=== PATIENT | female | born 1995 | race American Indian/Alaskan Native ===

== ENCOUNTER 2017-03-31 10:07 | Inpatient (IN) | payer MEDICAID ==
[2017-03-31 11:58] LABS: Hematocrit 32.2 % (30.3-42.9); Hemoglobin 10.1 gm/dl (10.1-14.3); Mean Corpuscular HGB Conc 31 % (30-34); Mean Corpuscular Hemoglobin 21 pg (28-32); Mean Corpuscular Volume 68 fl (79-97); Platelet Count 176 K/mm3 (140-440); Red Blood Count 4.74 M/mm3 (3.65-5.03); Red Cell Distribution Width 16.4 % (13.2-15.2); White Blood Count 5.8 K/mm3 (4.5-11.0)
[2017-03-31] MEDS ORDERED: STADOL IV PRN (12:00)
[2017-03-31] MEDS ORDERED: MINERAL OIL PO PRN (12:00)
[2017-03-31] MEDS ORDERED: NARCAN 0.4 MG/1 ML IV PRN (12:00)
[2017-03-31] MEDS ORDERED: SUBLIMAZE IV PRN (12:00)
[2017-03-31] MEDS ORDERED: XYLOCAINE 2% INFILTRATI ONE (12:00)
[2017-03-31] MEDS ORDERED: PITOCin/NS 20 UNIT/1000ML DRIP 20 UNITS/1,000 ML BAG IV SCH ×2 (12:00→19:53)
[2017-03-31] MEDS ORDERED: ZOFRAN IV PRN (12:00)
[2017-03-31] MEDS ORDERED: ePHEDrine SULFATE IV PRN ×2 (12:00→14:49)
[2017-03-31] MEDS ORDERED: POLYCILLIN/NS 2 GM/100 ML 2 GM/100 ML BAG IV ONE (12:00)
[2017-03-31] MEDS: LACTATED RINGERS 1,000 ML IV SCH ×3 (12:04→15:37)
[2017-03-31] MEDS ORDERED: BRETHINE SUB-Q PRN (12:30)
[2017-03-31] MEDS ORDERED: BRETHINE IVP PRN (12:30)
--- NOTE | 2017-03-31 14:48 | Anesthesia Day of Surgery ---
Anesthesia Day of Surgery - Day of Surgery Patient Examined: Yes Patient H&P Reviewed: Yes Patient is NPO: Yes
--- NOTE | 2017-03-31 14:48 | Anesthesia Consultation ---
Anesthesia Consult and Med Hx Date of service: 03/31/17 - Airway Anesthetic Teeth Evaluation: Good ROM Head & Neck: Adequate Mental/Hyoid Distance: Adequate Mallampati Class: Class II Intubation Access Assessment: Probably Good - Pulmonary Exam CTA: Yes - Cardiac Exam Cardiac Exam: RRR - Pre-Operative Health Status ASA Pre-Surgery Classification: ASA2 Proposed Anesthetic Plan: MAC - Pulmonary Hx Asthma: No COPD: No Hx Pneumonia: No - Cardiovascular System Hx Hypertension: No - Central Nervous System Hx Seizures: No Hx Psychiatric Problems: No - Endocrine Hx Renal Disease: No Hx End Stage Renal Disease: No Hx Hypothyroidism: No Hx Hyperthyroidism: No - Hematic Hx Anemia: No Hx Sickle Cell Disease: No - Other Systems Hx Alcohol Use: No
[2017-03-31] MEDS ORDERED: NARCAN 2 MG/2 ML IV PRN (14:49)
[2017-03-31] MEDS ORDERED: fentaNYL-BUPIV 2 MCG/ML-0.125% 200 MCG/100 ML BAG EPIDURAL SCH (15:00)
[2017-03-31] MEDS: PITOCin/NS 30 UNIT/500ML 30 UNITS/500 ML BAG IV SCH ×2 (15:43→16:46)
[2017-03-31] MEDS ORDERED: POLYCILLIN/NS 1 GM/50 ML 1 GM/50 ML BAG IV SCH (16:00)
[2017-03-31] MEDS ORDERED: XYLOCAINE MPF 2% ONE ×2 (16:54)
--- NOTE | 2017-03-31 17:02 | History and Physical Report ---
History of Present Illness Date of examination: 03/31/17 Date of admission: 03/31/17 11:18 Chief complaint: contractions History of present illness: Pt is a 22 year old -[place] female MINE 04/10/17 at 38w4d who presents with regular contractions and cervical dilation of 4 cm ( She was 1 cm in the office on ). She denies vaginal bleeding or leakage of fluid. She has had care at [facility] since 18 wks complicated by late entry to care, grandmultiparity, placenta previa that resolved, rubella non -immune status, sickle cell trait, genital herpes without lesion or prodrime, GERD on Zantac daily, GSB positive status. Pt does not desire future fertility. 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: chlamydia (remote, treated; not during this ) Family/Genetic History: cancer Social history: no significant social history, single - Obstetrical History Expected Date of Delivery: 04/10/17 Actual Gestation: 38 Week(s) 4 Day(s) : 6 Para: 5 Hx # Term Pregnancies: 5 Number of Pregnancies: 0 Spontaneous Abortions: 0 Induced : 0 Number of Living Children: 5 Medications and Allergies Allergies Allergy/AdvReac Type Severity Reaction Status Date / Time No Known Allergies Allergy Verified 07/03/16 02:07 Home Medications Medication Instructions Recorded Confirmed Last Taken Type Vit No.130/Iron/FA 1 each PO DAILY 03/31/17 03/31/17 03/29/17 08:00 History [ Tablet] Ranitidine HCl [Zantac 150 MG TAB] 150 mg PO BID 03/31/17 03/31/17 03/31/17 01: 00 History Active Meds: Active Medications Butorphanol Tartrate (Stadol) 2 mg IV Q2H PRN PRN Reason: Pain , Severe (7-10) Ephedrine Sulfate (Ephedrine Sulfate) 10 mg IV Q2M PRN PRN Reason: Hypotension Stop: 04/01/17 13:00 Fentanyl (Sublimaze) 100 mcg IV Q2H PRN PRN Reason: Labor Pain Ampicillin Sodium (Polycillin/Ns 1 Gm/50 Ml) 1 gm in 50 mls @ 100 mls/hr IV Q4H SALAS PRN Reason: Protocol Last Admin: 03/31/17 15:49 Dose: 100 mls/hr Lactated Ringer's (Lactated Ringers) 1,000 mls @ 125 mls/hr IV DIRECT SALAS Last Admin: 03/31/17 15:37 Dose: 125 mls/hr Oxytocin/Sodium Chloride (Pitocin/Ns 20 Unit/1000ml Drip) 20 units in 1,000 mls @ 125 mls/hr IV DIRECT SALAS Oxytocin/Sodium Chloride (Pitocin/Ns 30 Unit/500ml) 30 units in 500 mls @ 4 mls /hr IV TITR SALAS PRN Reason: Protocol Last Admin: 03/31/17 16:46 Dose: 8 ml/hr, 8 mls/hr Fentanyl/Bupivacaine/Sodium Chlor (Fentanyl-Bupiv 2 Mcg/Ml-0.125%) 200 mcg in 100 mls @ 12 mls/hr EPIDURAL TITR SALAS PRN Reason: Protocol Last Admin: 03/31/17 15:30 Dose: 12 mls/hr Mineral Oil (Mineral Oil) 30 ml PO QHS PRN PRN Reason: Constipation Naloxone HCl (Narcan 0.4 Mg/1 Ml) 0.1 mg IV Q2MIN PRN PRN Reason: Res Rate </= 8 or 02 SAT < 92% Ondansetron HCl (Zofran) 4 mg IV Q8H PRN PRN Reason: Nausea And Vomiting Review of Systems All systems: negative - Vital Signs Vital signs: Vital Signs Pulse Pulse Ox 99 H 100 03/31/17 10:20 03/31/17 10:20 Temp Pulse Resp BP Pulse Ox 97.8 F 79 18 123/70 100 03/31/17 11:52 03/31/17 16:51 03/31/17 11:52 03/31/17 16:48 03/31/17 16:51 - Physical Exam Breasts: Positive: deferred Cardiovascular: Regular rate Lungs: Positive: Clear to auscultation Abdomen: Positive: soft (obese, gravid ) Genitourinary (Female): Positive: normal external genitalia Uterus: Positive: enlarged (gravid ) Extremities: Positive: normal - Obstetrical FHR: category 2 Uterine Contraction Monitor Mode: External Cervical Dilatation: 9 Cervical Effacement Percentage: 90 station: -1 Uterine Contraction Pattern: Irregular Uterine Tone Measurement Phase: Resting Uterine Contraction Intensity: Moderate Results Result Diagrams: 03/31/17 11:25 Abnormal lab results 03/31/17 Range/Units 11:25 MCV 68 L (79-97) fl MCH 21 L (28-32) pg RDW 16.4 H (13.2-15.2) % All other labs normal. Assessment and Plan A: IUP at 38w4d Active labor Grandmultiparity Sickle Cell Trait Rubella Non-Immune Genital herpes- no lesion or prodrome GERD GBS positive Undesired Fertility P: Admit to labor and delivery. GBS prophylaxis- s/p 2 doses of ampicillin AROM- clear fluid Routine intrapartum care.
--- NOTE | 2017-03-31 17:49 | Procedure Note ---
OB Delivery Note - Delivery Date of Delivery: 03/31/17 Surgeon: TERESA GUTIERREZ Estimated blood loss: 300cc - Vaginal Delivery presentation: vertex Delivery position: OA Intrapartum events: mult.variable deceleratio Delivery induction: none Delivery augmentation: rupture of membranes, pitocin Delivery monitor: external FHT, external uterine Route of delivery: Delivery placenta: spontaneous Delivery cord: 3 umbilical vessels Episiotomy: none Delivery laceration: none Anesthesia: epidural Delivery comments: Patient progressed to complete/complete/+2 she delivered a viable female over intact perineum via spontaneous vaginal delivery under epidural anesthesia. Head delivered in DAYANA position. We followed by shoulders and body. placed maternal abdomen for bonding and both suctioned. Cord clamped and cut. Cord blood collected. Placenta delivered spontaneously (3 vessel cord, intact) (. Vagina and perineum explored. No lacerations noted. EBL 300 mL. - Infant A at 1 minute: 8 at 5 minutes: 9 Infant Gender: Female (3701g (8lb 3oz))
[2017-03-31] MEDS ORDERED: DULCOLAX PR PRN (19:53)
[2017-03-31] MEDS ORDERED: SODIUM CHLORIDE FLUSH SYRINGE 10 ML IV NR (19:53)
[2017-03-31] MEDS ORDERED: BENADRYL PO PRN (19:53)
[2017-03-31] MEDS ORDERED: TUCKS PAD TP PRN (19:53)
[2017-03-31] MEDS ORDERED: TYLENOL PO PRN (19:53)
[2017-03-31] MEDS ORDERED: DERMOPLAST TP PRN (19:53)
[2017-03-31] MEDS ORDERED: PHENERGAN PR PRN (19:53)
[2017-03-31] MEDS ORDERED: LANSINOH TP PRN (19:53)
[2017-03-31] MEDS ORDERED: PHENERGAN PO PRN (19:53)
[2017-03-31] MEDS ORDERED: MILK OF MAGNESIA PO PRN (19:53)
[2017-03-31] MEDS: MOTRIN PO SCH (20:12)
[2017-03-31] MEDS: PERCOCET 5/325 PO PRN (21:03)
[2017-03-31] MEDS: FEOSOL PO SCH (21:58)
[2017-04-01] MEDS: MOTRIN PO SCH (02:17)
[2017-04-01 04:47] LABS: Hematocrit 31.7 % (30.3-42.9); Hemoglobin 9.8 gm/dl (10.1-14.3)
[2017-04-01] MEDS: PERCOCET 5/325 PO PRN ×4 (05:09→19:56)
--- NOTE | 2017-04-01 06:42 | Progress Note ---
Assessment and Plan A: PPD#1 s/p at term; Asymptomatic anemia P: Routine care. Anticipate discharge tomorrow. Subjective - Subjective Date of service: 04/01/17 Principal diagnosis: s/p at term delivered Interval history: Pt reports need for stronger medication to control her uterine cramping. Otherwise, she has no complaints. Patient reports: appetite normal, voiding normally, pain poorly controlled, ambulating normally [place]: doing well, bottle feeding Objective - Vital Signs Latest vital signs: Vital Signs Temp Pulse Pulse Resp BP BP Pulse Ox 04/01/17 05:09 20 04/01/17 05:00 98.3 F 73 18 133/69 04/01/17 00:45 97.8 F 81 20 121/56 03/31/17 21:03 20 03/31/17 20:12 20 03/31/17 19:55 98.9 F 78 20 135/72 03/31/17 19:12 73 129/74 03/31/17 19:09 18 03/31/17 18:57 89 132/78 03/31/17 18:50 80 18 125/69 03/31/17 18:42 80 125/69 03/31/17 18:29 58 L 70 L 03/31/17 18:25 78 18 123/80 03/31/17 18:20 76 18 126/72 99 03/31/17 18:18 89 126/72 03/31/17 18:17 91 H 99 03/31/17 18:16 93 03/31/17 18:05 81 20 123/66 98 03/31/17 18:03 81 123/66 03/31/17 17:48 85 133/71 03/31/17 17:46 88 98 03/31/17 17:41 85 98 03/31/17 17:36 74 100 03/31/17 17:33 71 119/63 03/31/17 17:31 83 100 03/31/17 17:26 87 100 03/31/17 17:21 86 100 03/31/17 17:19 112 H 133/63 03/31/17 17:16 97 H 100 03/31/17 17:11 89 99 03/31/17 17:06 92 H 100 03/31/17 17:03 75 124/58 03/31/17 17:01 79 100 03/31/17 16:56 119 H 100 05 16:51 79 100 05 16:48 96 H 123/70 05 16:46 84 100 03/31/17 16:41 94 H 100 03/31/17 16:36 84 100 03/31/17 16:34 82 129/70 05 16:31 78 100 05 16:26 80 100 03/31/17 16:21 79 100 03/31/17 16:18 86 112/56 03/31/17 16:16 80 100 03/31/17 16:11 82 100 03/31/17 16:06 88 100 03/31/17 16:05 90 107/57 03/31/17 16:01 77 100 03/31/17 15:56 81 98 03/31/17 15:51 80 100 03/31/17 15:49 84 128/63 03/31/17 15:46 77 100 03/31/17 15:41 78 99 03/31/17 15:36 71 100 03/31/17 15:34 80 117/61 03/31/17 15:31 70 100 03/31/17 15:26 80 100 03/31/17 15:21 80 100 03/31/17 15:16 96 H 113/66 100 03/31/17 15:11 92 H 122/64 99 03/31/17 15:06 82 100 03/31/17 15:05 91 H 113/57 03/31/17 15:01 103 H 99 03/31/17 15:00 104 H 108/57 03/31/17 14:58 102 H 108/56 05 14:56 97 H 115/60 100 03/31/17 14:54 92 H 106/56 03/31/17 14:52 114 H 107/53 03/31/17 14:51 95 H 100 05 14:50 107 H 110/51 05 14:48 117 H 96/46 05 14:46 103 H 115/58 99 05 14:44 103 H 123/58 05 14:41 90 121/61 100 05 14:38 84 117/58 03/31/17 14:36 80 118/58 99 05/22/17 14:34 100 H 127/61 03/31/17 14:32 96 H 137/63 03/31/17 14:31 103 H 100 03/31/17 14:30 104 H 130/81 03/31/17 14:28 113 H 141/90 03/31/17 14:26 107 H 100 03/31/17 14:21 83 100 03/31/17 14:16 89 100 03/31/17 14:04 79 99 03/31/17 13:59 76 99 03/31/17 13:54 83 99 03/31/17 13:49 76 99 03/31/17 13:44 89 98 03/31/17 13:39 84 99 03/31/17 13:34 85 99 03/31/17 13:29 79 98 03/31/17 13:24 86 98 03/31/17 13:19 77 99 03/31/17 13:14 77 99 03/31/17 13:09 81 99 03/31/17 13:04 78 98 03/31/17 12:59 82 99 03/31/17 12:54 89 99 03/31/17 12:49 86 98 03/31/17 12:44 86 99 03/31/17 12:39 85 99 03/31/17 12:34 88 98 03/31/17 12:29 85 99 03/31/17 12:24 88 98 03/31/17 12:19 89 99 03/31/17 12:14 97 H 98 03/31/17 12:09 98 H 98 03/31/17 12:04 93 H 99 03/31/17 11:59 86 100 03/31/17 11:54 97 H 99 03/31/17 11:52 97.8 F 95 H 18 120/71 99 03/31/17 11:49 98 H 99 03/31/17 11:48 94 H 120/71 03/31/17 11:30 93 H 99 03/31/17 11:25 94 H 99 03/31/17 11:20 95 H 99 03/31/17 11:15 98 H 99 03/31/17 11:10 97 H 98 03/31/17 11:05 96 H 99 03/31/17 11:00 90 100 03/31/17 10:55 93 H 99 03/31/17 10:50 94 H 99 03/31/17 10:45 96 H 98 03/31/17 10:40 100 H 98 03/31/17 10:35 99 H 99 03/31/17 10:30 103 H 99 03/31/17 10:25 94 H 99 03/31/17 10:24 98.1 F 98 H 20 127/80 98 03/31/17 10:21 92 H 127/80 03/31/17 10:20 99 H 100 Intake and Output 03/31/17 03/31/17 04/01/17 14:59 22:59 06:59 Intake Total 1000 1730 1475 Output Total 125 350 402 Balance 875 1380 1073 Intake: IV 1000 1250 875 Lactated Ringers 1,000 ml 1000 1000 @ 125 mls/hr IV DIRECT SALAS Rx#:[id number] PITOCin/NS 20 UNIT/1000ML 250 875 DRIP 20 units In 1,000 ml @ 125 mls/hr IV DIRECT SALAS Rx#:[id number] Oral 480 240 Intake, Free Water 360 Output: Urine 125 350 402 Indwelling Catheter 350 Uretheral ([place]) 125 Void 402 Other: Total, Intake Amount 480 240 Total, Output Amount 225 2 Weight 111.584 kg Estimated Blood Loss 300 Patient Weight 04/01/17 06:59 Weight 111.584 kg - Exam Breasts: Present: deferred Cardiovascular: Present: Regular rate Lungs: Present: Clear to auscultation Abdomen: Present: soft (obese) Uterus: Present: fundal height at umbilicus Extremities: Present: edema (trace) - Labs Labs: Abnormal lab results 03/31/17 04/01/17 Range/Units 11:25 04:19 Hgb 9.8 L (10.1-14.3) gm/dl MCV 68 L (79-97) fl MCH 21 L (28-32) pg RDW 16.4 H (13.2-15.2) %
[2017-04-01] MEDS: MOTRIN PO PRN ×2 (10:00→18:35)
[2017-04-01] MEDS: PRENATAL VITAMIN PO SCH (10:42)
[2017-04-01] MEDS: FEOSOL PO SCH ×2 (10:42→23:03)
--- NOTE | 2017-04-01 12:34 | Discharge Summary ---
Providers - Providers Date of Admission: 03/31/17 11:18 Date of discharge: 04/02/17 Attending physician: TERESA GUTIERREZ 03/31/17 19:53 Consult to [facility] [place] [CONS] Routine Reason For Exam: assistance with , SNS Primary care physician: TERESA GUTIERREZ Hospitalization Reason for admission: active labor Delivery: Procedure details: Please see delivery note. Episiotomy: none Laceration: none Other procedures: none complications: none Discharge diagnosis: IUP at term delivered baby: female Hospital course: Pt underwent which she tolerated well. Her course was uncomplicated. She met discharge criteria on PPD#2. Condition at discharge: Stable Disposition: DISCHARGED TO HOME OR SELFCARE - Discharge Diagnoses (1) Term of female Status: Acute (2) Obesity Status: Acute Qualifiers: Obesity type: O Obesity severity: non-morbid (3) Anemia affecting Status: Acute Qualifiers: Trimester: third trimester Qualified Code(s): O99.013 - Anemia complicating , third trimester Plan - Discharge Medications Prescriptions: Ferrous Sulfate [Feosol 325 MG tab] 325 mg PO BID #60 tablet Ibuprofen [Motrin] 800 mg PO Q8HR PRN #30 tablet PRN Reason: Pain oxyCODONE /ACETAMINOPHEN [Percocet 5/325] 1 tab PO Q6HR PRN #30 tablet PRN Reason: Pain Vit-Fe Fumar-FA [ Vitamin] 1 tab PO QDAY #30 tablet - Provider Discharge Summary Activity: routine, no sex for 6 weeks, no heavy lifting 4 weeks, no strenuous exercise Diet: routine Instructions: routine Additional instructions: [] Smoking cessation referral if applicable(refer to patient education folder for contact #) [] Refer to [facility] Booklet Call your doctor immediately for: * Fever > 100.5 * Heavy vaginal bleeding ( >1 pad per hour) * Severe persistent headache * Shortness of breath * Reddened, hot, painful area to leg or breast * Drainage or odor from incision. * Keep incision clean and dry at all times and follow doctor's instructions regarding bathing/showering - Follow up plan Follow up: IRVING HORAN MD [Staff Physician] - 04/28/17 ( exam )
[2017-04-01] MEDS ORDERED: M-M-R II VACCINE SUB-Q ONE (17:49)
[2017-04-01] MEDS ORDERED: BOOSTRIX IM ONE (17:49)
[2017-04-02] MEDS: PERCOCET 5/325 PO PRN ×2 (01:54→13:38)
[2017-04-02 10:31] VITALS: BP 125/71
[2017-04-02] MEDS: FEOSOL PO SCH (11:55)
[2017-04-02] MEDS: PRENATAL VITAMIN PO SCH (11:55)
[2017-04-02] MEDS: MOTRIN PO PRN (13:39)
== END 2017-04-02 14:15 | disposition home or self-care (01) | DRG 775 ==
LOC: TRG 10:07 → LD 11:18 → OB 19:47
PROVIDERS: ADMIT Obstetrics & Gynecology; ATTEND Obstetrics & Gynecology
PROC: 10E0XZZ Delivery of Products of Conception, External Approach (ICD-10-PCS; principal; 2017-03-31)
PROC: 3E0S3CZ (ICD-10-PCS; 2017-03-31)
PROC: 00HU33Z Insertion of Infusion Device into Spinal Canal, Percutaneous Approach (ICD-10-PCS; 2017-03-31)
PROC: 3E0234Z Introduction of Serum, Toxoid and Vaccine into Muscle, Percutaneous Approach (ICD-10-PCS; 2017-04-01)
DX: O76 Abnormality in fetal heart rate and rhythm complicating labor and delivery (principal); O99.824 Streptococcus B carrier state complicating childbirth; O99.02 Anemia complicating childbirth; D57.3 Sickle-cell trait; O99.62 Diseases of the digestive system complicating childbirth; K21.9 Gastro-esophageal reflux disease without esophagitis; O09.43 Supervision of pregnancy with grand multiparity, third trimester; Z3A.38 38 weeks gestation of pregnancy; Z37.0 Single live birth; Z23 Encounter for immunization
CPT/HCPCS: 36415; 85014; 85018; 85027; 86850; 86900; 86901; 99211; G0463; J0290; J2590; J3010; J7120